=== PATIENT | female | born 1990 | race African-American/Black ===

== ENCOUNTER 2019-06-28 08:58 | Emergency (ER) | payer BC ==
[2019-06-28 09:16] VITALS: BP 132/88; PULSE 113; TEMP 99.8; BMI 33.6
[2019-06-28] MEDS ORDERED: IBUPROFEN 600 MG TABLET (FP) PO ONE ×3 (09:57→11:10)
--- NOTE | 2019-06-28 10:21 | PDOC ---
History of Present Illness - General Chief Complaint: Cold Symptoms Stated Complaint: FLU LIKE SYS Time Seen by Provider: 06/28/19 09:37 History Source: Patient Exam Limitations: No Limitations - History of Present Illness Initial Comments: 06/28/19 10:17 Patient is a 28-year-old female who presents to the ED with 4 days of cough, chills, subjective fevers, throat pain and body aches. She states she has been taking Mucinex and DayQuil with some relief. She admits to a history of asthma but states she has not been admitted for this. She is not a smoker. She did not get a flu shot this year. Past History - Past Medical History Allergies/Adverse Reactions: Allergies Allergy/AdvReac Type Severity Reaction Status Date / Time No Known Allergies Allergy Verified 06/28/19 09:13 Home Medications: Ambulatory Orders NK [No Known Home Medication] 06/28/19 CVA: No COPD: No CHF: No DVT: No Dementia: No - Immunization History Immunization Up to Date: Yes - Psycho Social/Smoking Cessation Hx Smoking History: Never smoked Hx Alcohol Use: No Drug/Substance Use Hx: No Review of Systems - Review of Systems Able to Perform ROS?: Yes Constitutional: Yes: Chills, Fever, Loss of Appetite, Malaise HEENTM: Yes: Nose Congestion, Throat Pain. No: Eye Pain, Nose Bleeding, Dental Problems, Difficulty Swallowing, Mouth Swelling Respiratory: Yes: Cough, Productive cough. No: Shortness of Breath, Wheezing Cardiac (ROS): No: Chest Pain, Palpitations ABD/GI: No: Abdominal Distended, Constipated, Diarrhea, Nausea, Vomiting : No: Burning, Dysuria Musculoskeletal: Yes: Muscle Pain. No: Back Pain, Joint Swelling Integumentary: No: Lesions, Rash Neurological: No: Headache, Numbness, Tingling, Dizziness *Physical Exam - Vital Signs Last Vital Signs Temp Pulse Resp BP Pulse Ox 99.8 F H 113 H 18 132/88 97 06/28/19 09:13 06/28/19 09:13 06/28/19 09:13 06/28/19 09:13 06/28/19 09:13 - Physical Exam General Appearance: Yes: Nourished, Appropriately Dressed. No: Apparent Distress HEENT: positive: EOMI, ANDREA, Normal Voice, TMs Normal, Tonsillar Erythema, Nasal Congestion, Rhinorrhea, Hearing Grossly Normal. negative: Tonsillar Exudate, TM Bulging, TM Dull Neck: positive: Supple, Lymphadenopathy (R), Lymphadenopathy (L). negative: Tender, Decreased range of motion Respiratory/Chest: positive: Lungs Clear, Normal Breath Sounds. negative: Respiratory Distress, Accessory Muscle Use Cardiovascular: positive: Regular Rhythm, Regular Rate, S1, S2 Gastrointestinal/Abdominal: positive: Soft. negative: Tender Musculoskeletal: positive: Normal Inspection. negative: Decreased Range of Motion Extremity: positive: Normal Capillary Refill, Normal Inspection Integumentary: positive: Normal Color, Dry. negative: Rash Neurologic: positive: coffee taster II-XII NML intact, Fully Oriented, Alert, Normal Mood/ Affect, Normal Response ED Treatment Course - ADDITIONAL ORDERS Additional order review: 06/28/19 11:00 Laboratory Tests 06/28/19 06/28/19 10:00 10:00 Influenza A (Rapid) Negative Influenza B (Rapid) Positive A Group A Strep Rapid Negative - RADIOLOGY Radiology Studies Ordered: Category Date Time Status CHEST PA & LAT [RAD] Stat Radiology 06/28/19 09:57 Ordered - Medications Given in the ED: ED Medications Discontinued Medications Generic Name Dose Route Start Last Admin Trade Name Freq PRN Reason Stop Dose Admin Ibuprofen 600 mg 06/28/19 09:57 06/28/19 10:07 Motrin - PO 06/28/19 09:58 600 mg ONCE ONE Administration Medical Decision Making - Medical Decision Making 06/28/19 11:00 Patient has evidence of influenza B virus. Since her symptoms started 4 days ago, she is not a candidate for Tamiflu. She has been encouraged to get plenty of rest, drink plenty of fluids, take Tylenol or ibuprofen for fevers or body aches. She should follow-up with her primary doctor within 1 to 2 days for repeat evaluation and if she does not have 1 she can follow-up with [place] outpatient clinic. She understands and agrees with treatment and plan and she is stable for discharge. Discharge - Discharge Information Problems reviewed: Yes Clinical Impression/Diagnosis: Influenza B Condition: Stable Disposition: HOME - Follow up/Referral [place]: [facility] [place] [facility] [place] [place] Group] - Patient Discharge Instructions Patient Printed Discharge Instructions: DI for Influenza -- Adult Additional Instructions: You have influenza B virus. You should get plenty of rest and drink plenty of fluids. Take Tylenol or ibuprofen for high fevers or body aches. Return to the emergency department for profuse vomiting, shaking chills, high fevers or any other worsening symptoms. Follow-up with your primary doctor within 1 to 2 days for repeat evaluation. If you do not have a primary doctor, we have given you a referral to 1. - Post Discharge Activity Work/Back to School Note: Back to Work
== END 2019-06-28 11:20 | disposition home or self-care (01) ==
LOC: JERFT 08:58
DX: J10.1 Influenza due to other identified influenza virus with other respiratory manifestations (principal)
CPT/HCPCS: 71046-TC-FY; 87070; 87804; 87880; 99282-25